=== PATIENT | male | born 1995 | race Caucasian/White ===

== ENCOUNTER 2018-12-12 12:20 | Emergency (ER) | payer OTHER ==
[2018-12-12 13:44] VITALS: BP 137/67
[2018-12-12] MEDS ORDERED: Azithromycin TAB* 250 MG PO ONE (14:03)
[2018-12-12] MEDS ORDERED: cefTRIAXone VIAL(*) 250 MG VIAL IM ONE (14:03)
--- NOTE | 2018-12-12 14:07 | UC ---
UC General HPI - HPI Summary HPI Summary: He was told that he has been exposed to chlamydia from sexual partner female. No condom use. He has no symptoms, pelvic pain, dysuria, drip. He has no mediation allergies. - History of Current Complaint Chief Complaint: UCGeneralIllness Stated Complaint: PERSONAL Time Seen by Provider: 12/12/18 13:36 Hx Obtained From: Patient Pain Intensity: 0 Associated Signs & Symptoms: Negative: Abdominal Pain, Back Pain, Confusion, Dysuria, Decreased Oral Intake, Fever - Allergy/Home Medications Allergies/Adverse Reactions: Allergies Allergy/AdvReac Type Severity Reaction Status Date / Time No Known Allergies Allergy Verified 12/12/18 13:44 Home Medications: Home Medications NK [No Home Medications Reported] 12/12/18 [History Confirmed 12/12/18] PMH/Surg Hx/FS Hx/Imm Hx Previously Healthy: No - Surgical History Surgical History: None - Family History Known Family History: Positive: Non-Contributory - Social History Alcohol Use: None Substance Use Type: None Smoking Status (MU): Light Every Day Tobacco Smoker Type: Cigarettes Review of Systems All Other Systems Reviewed And Are Negative: Yes Physical Exam Triage Information Reviewed: Yes Appearance: Well-Appearing, No Pain Distress, Well-Nourished Vital Signs: Initial Vital Signs Temp 97.6 F 12/12/18 13:42 Pulse 76 12/12/18 13:42 Resp 18 12/12/18 13:42 BP 137/67 12/12/18 13:42 Pulse Ox 100 12/12/18 13:42 Vital Signs Reviewed: Yes Eyes: Positive: Conjunctiva Clear ENT Exam: Normal Neck: Positive: Supple, Nontender. Negative: Nuchal Rigidity Respiratory: Positive: No respiratory distress, No accessory muscle use. Negative: Respiratory distress Cardiovascular: Positive: Brisk Capillary Refill Abdomen Description: Positive: Nontender, Soft. Negative: Distended, Guarding Musculoskeletal: Positive: Strength Intact, ROM Intact, No Edema Neurological: Positive: Alert, Muscle Tone Normal. Negative: Fatigued Psychological: Positive: Age Appropriate Behavior Skin: Negative: Rashes Course/Dx - Diagnoses Provider Diagnosis: Chlamydia contact, treated Discharge - Sign-Out/Discharge Documenting (check all that apply): Patient Departure All imaging exams completed and their final reports reviewed: No Studies - Discharge Plan Condition: Good Disposition: HOME Patient Education Materials: Sexually Transmitted Diseases (ED), Chlamydia (ED) , Safe Sex (ED), Condom Use (ED) Referrals: No Primary Care Phys,NOPCP [Primary Care Provider] - Additional Instructions: See your primary care or return here in 3mo for "test of re infection." - Billing Disposition and Condition Condition: GOOD Disposition: Home
[2018-12-12] MEDS ORDERED: Lidocaine 1% MPF* 2 ML VIAL ONE (14:08)
== END 2018-12-12 14:24 | disposition home or self-care (01) ==
LOC: UCCORT 12:20
DX: A56.8 Sexually transmitted chlamydial infection of other sites (principal); F17.210 Nicotine dependence, cigarettes, uncomplicated
CPT/HCPCS: 87491; 87591; 96372; 99202; A9270-GY; G0463; J0696